=== PATIENT | male | born 1945 | race Caucasian/White ===

== ENCOUNTER → 2017-08-03 | Outpatient (CLI) | payer MEDICARE, OTHER ==
[~2017-08-03] MED LIST: ATENOLOL25 MG; AVODART0.5 MG PO; BUPROPION XL150 MG PO; BUTALB-ACETAMI1 EACH PO; BUTALBITAL-APA1 EAC1 PO; BYSTOLIC5 MG PO; CELEBREX200 MG PO; CYMBALTA60 MG PO; HYDROCET 5-5001 EACH; LEVOTHYROXINE25 MCG PO; LIPITOR10 MG PO; LUNESTA3 MG PO; LYRICA25 MG; PANTOPRAZOLE SO40 MG PO; POTASSIUM CHLO10 ME1 PO; PRADAXA150 MG; RANITIDINE HCL300 MG PO; RAPAFLO8 MG PO; ROBAXIN-750750 MG PO; SUCRALFATE1 GM PO; TAMSULOSIN HCL0.4 MG; TIZANIDINE HCL4 M1 PO; TOPIRAMATE100 MG PO; TORSEMIDE10 MG PO; TRIAMTERENE-HCTZ1 EA PO; VESICARE5 MG PO; XARELTO20 MG PO; Z.0.CELEBREX200 MG PO; Z.0.LIPITOR40 MG PO; [UNRECOGNIZED DRUG - REMARK]; [UNRECOGNIZED DRUG - REMARK] PO
--- NOTE | 2017-08-03 11:18 | Diagnostic Imaging Report ---
PROCEDURE: Frontal and lateral views of the chest. COMPARISON: 03/26/09 INDICATIONS: SHORTNESS OF BREATH FINDINGS: Lines/tubes: None. Lungs: The lungs are well inflated and clear. There is no evidence of pneumonia or pulmonary edema. Stable nodular density overlying left lower lung field, likely a calcified granuloma. Minimal left basilar subsegmental atelectasis. Pleura: There is no pleural effusion or pneumothorax. Heart and mediastinum: The heart and the mediastinum are normal. Bones: No acute bony abnormality. Partially imaged right humeral head prosthesis and cervical spine fusion hardware. IMPRESSION: 1. No acute cardiopulmonary disease. Dictated by: Oc Pérez M.D. on 08/03/2017 at 11:27 Electronically approved by: Oc Pérez M.D. on 08/03/2017 at 11:27
== END ==
LOC: RAD 09:49
PROVIDERS: ATTEND Family Medicine
DX: R06.02 Shortness of breath (principal)
CPT/HCPCS: 71046

== ENCOUNTER → 2017-12-25 | Outpatient (CLI) | payer MEDICARE ==
[~2017-12-25] MED LIST changes: +IOPAMIDOL 370 MG/ML 200 ML INFUS..BTL INJ ONE; +SODIUM CHLORIDE 0.9% 100 ML ONE
[2017-12-25 17:37] LABS: BLOOD UREA NITROGEN 14 mg/dL (7-26); BUN/CREATININE RATIO 15 (6-25); CREATININE, SERUM 0.94 mg/dL (0.72-1.25); EST GLOMERULAR FILTRATION RATE > 60 ML/MIN (60-)
--- NOTE | 2017-12-25 19:20 | Diagnostic Imaging Report ---
ADDENDUM #1 Addendum: Additional reconstructions including coronal and sagittal delayed images were obtained for further evaluation of the left atrial appendage. On arterial phase, as CT 3, image 38 there is complete filling of the tip of the left patella. Age with the median density soft tissue which is similar to the left lateral wall and left ventricular myocardium. Gated arterial phase, the aortic valve was open which means images were obtained during systole. On delayed images (series 6), which were obtained during diastole, the left atrial appendage is clear with associated minimal increased trabeculations at the tip. Overall findings are consistent with prominent left atrial appendage trabeculations without presence of thrombus. These findings were complicated to Dr. Steele on 12/28/2017 and 10:30 AM. Signed by: Dr. Ashley Bain M.D. on 12/28/2017 10:37 AM ORIGINAL REPORT EXAM: CT Chest WITH contrast 12/25/2017 5:30 PM INDICATION: \[id number] \S\1804 \S\LA THROMBUS COMPARISON: None TECHNIQUE: Chest was scanned utilizing a multidetector helical scanner from the lung apex through the level of the adrenal glands without administration of IV contrast. Coronal and sagittal reformations were obtained. Routine protocol was performed. IV CONTRAST: 100 mL of Isovue-370 COMPLICATIONS: None FINDINGS: LINES/ TUBES: None. LUNGS AND AIRWAYS: Left lower lobe 4 mm nodule (series 6 image 42). No consolidations. Airways are normal. PLEURA: The pleural spaces are clear. HEART AND MEDIASTINUM: The thyroid gland is normal. No mediastinal, hilar or axillary lymphadenopathy. The heart is normal in size.. No cardiac masses identified. There is no pericardial effusion. Ascending aortic ectasia measuring 4 cm. Mild coronary artery and aortic calcifications. Main pulmonary artery measures 2.5 cm. No filling defects within the central pulmonary arteries. On earlier contrast phase, left atrial appendage does not fully opacify. This area becomes relatively well opacified on the more delayed scanned. A tiny of linear area of nonopacification with the appendage persists on the delayed phase (series 6 image 31) UPPER ABDOMEN: Multiple renal cysts. Low attenuating lesions in the liver are likely cysts. BONES: Right shoulder prosthesis. Partially visualized lower cervical fusion hardware. SOFT TISSUES: Unremarkable. IMPRESSION: No cardiac masses identified. A tiny linear filling defect in the left atrial appendage may represent a trabeculation or thrombus. Signed by: DR. Jovan Chow MD on 12/25/2017 7:16 PM
== END ==
LOC: CT 16:58
PROVIDERS: ATTEND Internal Medicine Interventional Cardiology
DX: R06.02 Shortness of breath (principal); I82.890 Acute embolism and thrombosis of other specified veins
CPT/HCPCS: 36415; 71275; 82565; 84520; J7050; Q9967

== ENCOUNTER → 2018-04-13 | Day surgery (SDC) | payer MEDICARE ==
[2018-04-12 13:20] LABS: BASOPHILS # (AUTO) 0.1 (0.0-0.1); EOSINOPHILS # (AUTO) 0.2 (0.0-0.4); EOSINOPHILS % 3.8 % (0.0-6.0); HEMATOCRIT 44.2 % (38.2-49.6); HEMOGLOBIN 14.9 g/dL (14.0-18.0); LYMPHOCYTES # (AUTO) 1.7 (1.0-3.2); LYMPHOCYTES % 28.8 % (18.0-39.1); MEAN CORPUSCULAR HEMOGLOBIN 31.6 pg (28-32); MEAN CORPUSCULAR HGB CONC 33.7 g/dL (31-35); MEAN CORPUSCULAR VOLUME 93.8 fL (81-99); MONOCYTES # (AUTO) 0.5 (0.2-0.8); MONOCYTES % 8.9 % (4.4-11.3); NEUTROPHILS # (AUTO) 3.4 (2.1-6.9); PLATELET COUNT 326 x10e3/uL (140-360); RED BLOOD COUNT 4.71 x10e6/uL (4.3-5.7); RED CELL DISTRIBUTION WIDTH 13.1 % (11.7-14.4)
[2018-04-12 13:26] LABS: INR 1.87
[~2018-04-13] VITALS: Ht 180.3 cm; Wt 90.7 kg
[~2018-04-13] MED LIST changes: +ACETAMINOPHEN500 M1 PO; +BENZOCAINE 20% SPR 60 ML CAN ONE; +CALCIUM WITH V1 EAC1 PO; +DIGOXIN250 MCG PO; +DILTIAZEM 24HR180 MG PO; +FIBER TABS625 MG PO; -IOPAMIDOL 370 MG/ML 200 ML INFUS..BTL INJ ONE; +LIDOCAINE HCL 2% LOCAL INJ 5 ML SDV VIAL INJ ONE; +MIDAZOLAM HCL 2 MG/2 ML VIAL ONE; +MULTIVITAMINS1 EAC7 PO; +ONDANSETRON HCL INJ 2 MG/ML VIAL ONE; +POTASSIUM CHLO20 ME1 PO; +PROPOFOL IV EMULSION 10 MG/ML 20 ML VIAL ONE; -SODIUM CHLORIDE 0.9% 100 ML ONE; +SODIUM CHLORIDE 0.9% 1000ML 1,000 ML ONE; +WARFARIN SODIUM5 MG PO
[2018-04-13 10:39] VITALS: BP 140/93
[2018-04-13 11:55] VITALS: BP 128/82
[2018-04-13 12:05] VITALS: BP 121/80
[2018-04-13 12:20] VITALS: BP 128/86
[2018-04-13 12:35] VITALS: BP 122/90
--- OUTSIDE RECORDS SUMMARY | 2018-04-20 12:17 | XMS REPORT | Clinical Summary ---
Author Author [facility] Address Unknown Phone Unavailable Care Team Providers Care Belt Turner Name Role Phone PCP Unavailable Allergies No Known Allergies Current Medications Prescription Sig. Disp. Refills Start End Date Status Date multivitamin capsule Take 1 capsule by mouth Active daily. acetaminophen (TYLENOL) Take 500 mg by mouth Active 500 MG tablet every 6 (six) hours as needed. triamterene-hydrochloroth Take 1 capsule by mouth Active iazide (DYAZIDE) 37.5-25 as needed. mg per capsule pantoprazole (PROTONIX) Take 40 mg by mouth Active 40 MG tablet daily. rivaroxaban (XARELTO) 20 Take 20 mg by mouth Active mg Tab tablet daily. topiramate (TOPAMAX) 25 Take 100 mg by mouth 2 Active MG capsule (two) times daily. DULoxetine (CYMBALTA) 60 Take 60 mg by mouth Active MG capsule daily. metoprolol (TOPROL-XL) 50 Take 50 mg by mouth 2 Active MG 24 hr tablet (two) times daily. atorvastatin (LIPITOR) 10 Take 10 mg by mouth Active MG tablet daily. ranitidine (ZANTAC) 300 Take 300 mg by mouth Active MG tablet nightly. sucralfate (CARAFATE) 1 Take 1 g by mouth 4 Active gram tablet (four) times daily. buPROPion (WELLBUTRIN XL) Take 150 mg by mouth Active 150 MG 24 hr tablet daily. Active Problems Problem Noted Date Erectile dysfunction 06/06/2016 Urethral stricture 10/07/2013 Immunizations Name Dates Previously Given Next Due Influenza High Dose 06/07/2016 Preservative Free IM Family History Medical History Relation Name Comments Heart disease Father Relation Name Status Comments Father Social History Tobacco Use Types Packs/Day Years Used Date Former Smoker 4.5 15 Comments: quit 1996 Alcohol Use Drinks/Week oz/Week Comments Yes 5 Shots of 3.0 liquor Sex Assigned at Date Recorded Not on file Last Filed Vital Signs Not on file Plan of Treatment Not on file Implants Implanted Type Area Molder Feeder Device Expiration Model / Identifier Date Serial / Lot Prosthesis Penile Rte Ext 2cm Urology N/A: Penis [employer] 05/14/2020 [id number] / [id number] - [id number] / Implanted: Qty: 1 on 06/06/2016 by [id number] Josue Garcia MD Pump Ms 700 Lgx [id number] - Urology N/A: [employer] 09/11/2017 [id number] / [id number] Scrotum / Implanted: Qty: 1 on 06/06/2016 by [id number] Josue Garcia MD Resvr Ams 700 100ml [id number] - Urology N/A: [employer] 02/10/2018 [id number] Abdomen / Implanted: Qty: 1 on 06/06/2016 by / Josue Garcia MD [id number] Results Not on fileafter 04/12/2017 Advance Directives Patient has advance directives. For more information, please contact: [facility] [address] [place] [address]
--- OUTSIDE RECORDS SUMMARY | 2018-04-20 12:17 | XMS REPORT ---
Author [facility] Address Unknown Phone Unavailable Care Team Providers Care Director Voice Name Role Phone DIANNE RICCI Unavailable Unavailable BRENNEN BRYAN Unavailable Unavailable Payers Payer Name Policy Type Policy Number Effective Date Expiration Date Problems This patient has no known problems. Allergies, Adverse Reactions, Alerts Allergy Name Allergy Type Status Severity Reaction(s) Onset Date Inactive Date Treating Clinician Comments No Known Allergies DA Active U 2017-05-26 00:00:00 Medications This patient has no known medications. Results Test Description Test Time Test Comments Text Results Atomic Results Result Comments CTA CHEST 2017-12-25 19:00:00 [place] [address] Patient Name: PRAMOD GRAY MR #: [id number] : 1945 Age/Sex: 72/M Req #: [id number] Adm Physician: Ordered by: DIANNE RICCI MD Report #: [id number] Location: CT Room/Bed: Procedure: [id number] CT/CTA CHEST Exam Date: 12/25/17 Exam Time: 1803 REPORT STATUS: Signed ADDENDUM #1 Addendum: Additional reconstructions including coronal and sagittal delayed images were obtained for further evaluation of the left atrial appendage. On arterial phase, as CT 3, image 38 there is complete filling of the tip of the left patella. Age with the median density soft tissue which is similar to the left lateral wall and left ventricular myocardium. Gated arterial phase, the aortic valve was open which means images were obtained during systole. On delayed images (series 6), which were obtained during diastole, the left atrial appendage is clear with associated minimal increased trabeculations at the tip. Overall findings are consistent with prominent left atrial appendage trabeculations without presence of thrombus. These findings were complicated to Dr. Ricci on 12/28/2017 and 10:30 AM. Signed by: Dr. Ashley Bain M.D. on 12/28/2017 10:37 AM ORIGINAL REPORT EXAM: CT Chest WITH contrast 12/25/2017 5:30 PM INDICATION: COMPARISON: None TECHNIQUE: Chest was scanned utilizing a multidetector helical scanner from the lung apex through the level of the adrenal glands without administration of IV contrast. Coronal and sagittal reformations were obtained. Routine protocol was performed. IV CONTRAST: 100 mL of Isovue-370 COMPLICATIONS: None FINDINGS: LINES/ TUBES: None. LUNGS AND AIRWAYS: Left lower lobe 4 mm nodule (series 6 image 42). No consolidations. Airways are normal. PLEURA: The pleural spaces are clear. HEART AND MEDIASTINUM: The thyroid gland is normal. No mediastinal, hilar or axillary lymphadenopathy. The heart is normal in size.. No cardiac masses identified. There is no pericardial effusion. Ascending aortic ectasia measuring 4 cm. Mild coronary artery and aortic calcifications. Main pulmonary artery measures 2.5 cm. No filling defects within the central pulmonary arteries. On earlier contrast phase, left atrial appendage does not fully opacify. This area becomes relatively well opacified on the more delayed scanned. A tiny of linear area of nonopacification with the appendage persists on the delayed phase (series 6 image 31) UPPER ABDOMEN: Multiple renal cysts. Low attenuating lesions in the liver are likely cysts. BONES: Right shoulder prosthesis. Partially visualized lower cervical fusion hardware. SOFT TISSUES: Unremarkable. IMPRESSION: No cardiac masses identified. A tiny linear filling defect in the left atrial appendage may represent a trabeculation or thrombus. Signed by: DR. Jovan Srivastava MD on 12/25/2017 7:16 PM Dictated By: JOVAN SRIVASTAVA MD [id number] Transcribed By: THAD on 12/25/17 1916 COPY T O: DIANNE RICCI MD CHEST 2 VIEWS [place] [address] Patient Name: PRAMOD GRAY MR #: [id number] : 1945 Age/Sex: 72/M Req #: [id number] Adm Physician: Ordered by: BRENNEN BRYAN MD Report #: [id number] Location: [facility] Room/Bed: Procedure: [id number] DX/CHEST 2 VIEWS Exam Date: 08/03/17 Exam Time: 1000 REPORT STATUS: Signed PROCEDURE: Frontal and lateral views of the chest. COMPARISON: 03/26/09 INDICATIONS: SHORTNESS OF BREATH FINDINGS: Lines/tubes: None. Lungs: The lungs are well inflated and clear. There is no evidence of pneumonia or pulmonary edema. Stable nodular density overlying left lower lung field, likely a calcified granuloma. Minimal left basilar subsegmental atelectasis. Pleura: There is no pleural effusion or pneumothorax. Heart and mediastinum: The heart and the mediastinum are normal. Bones: No acute bony abnormality. Partially imaged right humeral head prosthesis and cervical spine fusion hardware. IMPRESSION: 1. No acute cardiopulmonary disease. Dictated by: Oc Siddiqui M.D. on 08/03/2017 at 11:27 Electronically approved by: Oc Siddiqui M.D. on 08/03/2017 at 11:27 Dictated By: OC SIDDIQUI MD 112 Transcribed By: MARIANNE on 08/03/171126 COPY TO: BRENNEN BRYAN MD
== END | disposition home or self-care (01) ==
LOC: OR 10:13 → EDSTATUS 12:00
PROVIDERS: ATTEND Internal Medicine Interventional Cardiology
DX: I48.91 Unspecified atrial fibrillation (principal); G47.33 Obstructive sleep apnea (adult) (pediatric); I10 Essential (primary) hypertension; Z01.812 Encounter for preprocedural laboratory examination; Z79.01 Long term (current) use of anticoagulants
CPT/HCPCS: 36415; 85025; 85610; 93312; 93320; 93325; J2001; J2250; J2405; J7030

== ENCOUNTER → 2018-07-14 | Outpatient (CLI) | payer MEDICARE ==
[~2018-07-14] MED LIST changes: -BENZOCAINE 20% SPR 60 ML CAN ONE; +IOPAMIDOL 370 MG/ML 200 ML INFUS..BTL INJ ONE; -LIDOCAINE HCL 2% LOCAL INJ 5 ML SDV VIAL INJ ONE; -MIDAZOLAM HCL 2 MG/2 ML VIAL ONE; -ONDANSETRON HCL INJ 2 MG/ML VIAL ONE; -PROPOFOL IV EMULSION 10 MG/ML 20 ML VIAL ONE; -SODIUM CHLORIDE 0.9% 1000ML 1,000 ML ONE; +SODIUM CHLORIDE 0.9% 50ML 50 ML ONE
[2018-07-14 13:53] LABS: BLOOD UREA NITROGEN 11 mg/dL (7-26); BUN/CREATININE RATIO 13 (6-25); CREATININE, SERUM 0.82 mg/dL (0.72-1.25); EST GLOMERULAR FILTRATION RATE > 60 ML/MIN (60-)
--- NOTE | 2018-07-14 15:26 | Diagnostic Imaging Report ---
EXAM: CT Abdomen and Pelvis WITH contrast INDICATION: ^GEN ABD PAIN/GASTRITIS COMPARISON: CTA chest 12/25/2017. TECHNIQUE: Abdomen and pelvis were scanned utilizing a multidetector helical scanner from the lung base to the pubic symphysis after administration of IV contrast. Coronal and sagittal reformations were obtained. Routine protocol was performed. Scan was performed when during portal venous phase. IV CONTRAST: 100 mL of Isovue 370 ORAL CONTRAST: Water COMPLICATIONS: None RADIATION DOSE: Total DLP: 684.74 mGy*cm Estimated effective dose: (DLP x 0.015 x size factor) mSv CTDIvol has been reviewed. It is below the limits set by the Radiation Protocol Committee (RPC). FINDINGS: LINES and TUBES: None. LOWER THORAX: Unremarkable HEPATOBILIARY: Mild lobulated contour of the liver. 1.7 cm cystic lesion in segment 2 of the liver (series 2, image 17). 1.1 cm hypodensity, likely cyst and segment 3/4 B (series 2, image 23). No biliary ductal dilation. GALLBLADDER: No radio-opaque stones or sludge. No wall thickening. SPLEEN: No splenomegaly. PANCREAS: No focal masses or ductal dilatation. ADRENALS: No adrenal nodules KIDNEYS/URETERS: Kidneys enhance symmetrically. No hydronephrosis. Multiple bilateral renal cysts. 5.3 cm cyst in the superior pole of the right kidney (image 35). 2.9 cm cyst in superior pole of left kidney (image 24). 3.6 x 4.7 cm bilobed versus cyst with a single thin septation in the inferior lateral pole left kidney (image 41). No stones. GI TRACT: Stomach is decompressed. No abnormal distention, wall thickening, or evidence of bowel obstruction. There are diverticula within the colon without evidence of diverticulitis. Appendix is normal. PELVIC ORGANS/BLADDER: Bladder is normal. Prostate measures 4.1 cm in transverse dimension. There are mild lobulations especially along the left anterior aspect. 1.6 cm peripherally calcified cystic lesion in the left seminal vesicle (series 2, image 78). LYMPH NODES: No lymphadenopathy. VESSELS: There is mild atherosclerotic disease in the aorta and major arterial branches. PERITONEUM / RETROPERITONEUM: No free air or fluid. BONES: There are degenerative changes in the lumbar spine. SOFT TISSUES: Penile prosthesis with water reservoir is in the right anterior pelvis. IMPRESSION: 1. Mildly lobulated liver contour suggestive of diffuse hepatic steatosis versus developing cirrhosis. 2. Lobulated prostate. Correlate with PSA. 3. Numerous bilateral benign renal cysts. 4. Diverticulosis without evidence of diverticulitis. Signed by: Dr. Deandre Velazco M.D. on 07/14/2018 3:22 PM
== END ==
LOC: CT 12:15
PROVIDERS: ATTEND Internal Medicine Gastroenterology
DX: R10.84 Generalized abdominal pain (principal); K29.60 Other gastritis without bleeding
CPT/HCPCS: 36415; 74177; 82565; 84520; Q9967

== ENCOUNTER → 2018-09-13 | Outpatient (CLI) | payer MEDICARE ==
[~2018-09-13] MED LIST changes: -IOPAMIDOL 370 MG/ML 200 ML INFUS..BTL INJ ONE; -SODIUM CHLORIDE 0.9% 50ML 50 ML ONE
--- NOTE | 2018-09-13 10:27 | Diagnostic Imaging Report ---
Right upper quadrant abdominal ultrasound. History: Fatty infiltration of the liver. Comparison: 07/14/2018. Discussion: Transverse and longitudinal images of the right upper quadrant of the abdomen were obtained demonstrating a liver of normal size with increased echogenicity measuring 15.8 cm in length. There is no evidence of a focal hepatic mass. The portal vein is patent with hepatopetal flow and is within normal limits measuring 8 mm in diameter. There is a left hepatic lobe cyst measuring 1.0 x 0.8 x 1.3 cm. The biliary tree is within normal limits with the common bile duct measuring 2 mm in diameter. The gallbladder is normal without evidence of wall thickening or pericholecystic fluid. The sonographic Machuca's sign was negative. The right kidney is normal in size and echogenicity without evidence of hydronephrosis, stones, or mass and measures 12.6 x 7.3 x 6.1 cm. Numerous right renal cysts are present. Largest is in the midpole and somewhat exophytic measuring 4.6 x 4.2 x 4.0 cm. Medial mid to lower pole right renal cyst measures 3.2 x 2.7 x 3.2 cm. Mid lateral pole cyst measures 2.2 x 2.0 cm. The pancreatic <body and tail> are visualized and are normal in appearance. The abdominal aorta is within normal limits. The IVC is normal. There is no evidence of free fluid. IMPRESSION: 1. Echogenic liver compatible with mild hepatic steatosis. 2. Multiple benign-appearing right renal cysts. Signed by: Dr. Meng Martinez DO on 09/13/2018 10:24 AM
== END ==
LOC: US 08:13
PROVIDERS: ATTEND Internal Medicine Gastroenterology
DX: K76.0 Fatty (change of) liver, not elsewhere classified (principal)
CPT/HCPCS: 76705

== ENCOUNTER 2021-04-16 11:08 | Emergency (ER) | payer MEDICARE ==
[~2021-04-16] VITALS: Ht 180.3 cm; Wt 95.3 kg
[2021-04-16] MEDS ORDERED: CASIRIVIMAB/IMDEVIMAB 10 ML in SODIUM CHLORIDE 0.9% 100 ML IV ONE (11:15)
[2021-04-16 12:19] VITALS: BP 125/77
== END 2021-04-16 12:22 | disposition home or self-care (01) ==
LOC: ER 11:18
DX: U07.1 COVID-19 (principal); R06.02 Shortness of breath; R05.9 Cough, unspecified; K21.9 Gastro-esophageal reflux disease without esophagitis
CPT/HCPCS: 99283; J7050